=== PATIENT | female | born 1960 | race Caucasian/White ===

== ENCOUNTER 2019-05-30 22:23 | Inpatient (IN) | payer OTHER ==
[~2019-05-30] VITALS: Ht 157.5 cm; Wt 62.1 kg
[~2019-05-30 22:23] MED LIST: B Complex #11 EACH; BUPR150ER PO; CHOL10002; GABA300; HAIR, SKIN & N1 EAC1; MONT10T; OMEPRAZOLE MAGN20 MG PO; SERT50; TRAM50; TURMERIC500 M2; ZYRTEC10 M1 PO
[2019-05-30 22:44] LABS: PCO2 Arterial 47.3 mmHg (35-45); pH Blood Arterial 7.36 (7.35-7.45)
[2019-05-30 22:47] LABS: BASOPHILS ABSOLUTE AUTO 0.03 K/mm3 (0.00-0.23); BASOPHILS PERCENT AUTO 1 % (0-2); EOSINOPHILS PERCENT AUTO 0 % (0-6); Hematocrit 36.2 % (33.0-51.0); Hemoglobin 12.1 g/dL (11.5-16.0); IMMATURE GRAN ABSOLUTE AUTO 0.01 K/mm3 (0.00-0.10); IMMATURE GRAN PERCENT AUTO 0 % (0-1); LYMPHOCYTES ABSOLUTE AUTO 3.28 K/mm3 (0.84-5.20); LYMPHOCYTES PERCENT AUTO 55 % (21-46); MONOCYTES PERCENT AUTO 8 % (4-13); Mean Corpuscular HGB Conc 33.4 g/dL (31.5-36.5); Mean Corpuscular Volume 90 fL (80-100); Mean Platelet Volume 8.6 fL (9.1-12.4); NEUTROPHILS ABSOLUTE AUTO 2.14 K/mm3 (1.96-9.15); NEUTROPHILS PERCENT AUTO 36 % (41-73); Platelet Count 260 K/mm3 (150-400); RDW Coefficient Variation 13.4 % (11.7-14.2); RDW Standard Deviation 44.1 fL (35.1-46.3); Red Blood Cell Count 4.04 M/mm3 (3.80-5.20); White Blood Cell Count 5.96 K/mm3 (4.00-11.30)
[2019-05-30 22:58] LABS: U Amphetamine Screen Not Detected; U Barbituate Screen Not Detected; U Benzodiazapine Screen Not Detected; U Buprenorphine Screen Not Detected; U Cannabinoids Screen Not Detected; U Cocaine Screen Not Detected; U Methadone Screen Not Detected; U Methamphetamine Screen Not Detected; U Opiates Screen DETECTED; U Oxycodone Screen Not Detected; U Phencyclidine Screen Not Detected; U Propoxyphene Screen Not Detected
[2019-05-30 23:06] LABS: Acetaminophen, Random 26.8 ug/mL (10.0-30.0); Alanine Aminotransfer (ALT/SGP 21 U/L (12-78); Albumin, Blood 3.6 g/dL (3.4-5.0); Albumin/Globulin Ratio 1.1 (0.8-1.8); Alk Phos 72 U/L (50-136); Anion Gap 7 mmol/L (6-16); Aspartate Aminotrans (AST/SGOT 20 U/L (12-37); Bilirubin, Total 0.1 mg/dL (0.1-1.0); Blood Urea Nitrogen 14 mg/dL (8-24); Bun/Creatinine Ratio 21.5 (12.0-20.0); CO2, Blood 27 mmol/L (21-32); Calcium, Blood 7.9 mg/dL (8.5-10.1); Chloride, Blood 108 mmol/L (98-108); Creatinine, Blood 0.65 mg/dL (0.40-1.00); Globulin, Blood 3.3 g/dL (2.2-4.0); Glomerular Filtration Rate >60 (60-); Glucose, Blood 86 mg/dL (70-99); Potassium, Blood 3.6 mmol/L (3.5-5.5); Salicylate <1.7 mg/dL (2.8-20.0); Sodium, Blood 142 mmol/L (136-145); Total Protein, Blood 6.9 g/dL (6.4-8.2)
[2019-05-30 23:14] LABS: Ethanol (Alcohol), Blood, Med 312 mg/dL
[2019-05-31 01:22] LABS: Acetaminophen, Random 24.7 ug/mL (10.0-30.0); Alanine Aminotransfer (ALT/SGP 19 U/L (12-78); Albumin, Blood 3.7 g/dL (3.4-5.0); Albumin/Globulin Ratio 1.1 (0.8-1.8); Alk Phos 70 U/L (50-136); Anion Gap 7 mmol/L (6-16); Aspartate Aminotrans (AST/SGOT 20 U/L (12-37); Bilirubin, Total 0.1 mg/dL (0.1-1.0); Blood Urea Nitrogen 14 mg/dL (8-24); Bun/Creatinine Ratio 21.5 (12.0-20.0); CO2, Blood 27 mmol/L (21-32); Calcium, Blood 7.8 mg/dL (8.5-10.1); Chloride, Blood 109 mmol/L (98-108); Creatinine, Blood 0.65 mg/dL (0.40-1.00); Globulin, Blood 3.3 g/dL (2.2-4.0); Glomerular Filtration Rate >60 (60-); Glucose, Blood 96 mg/dL (70-99); Potassium, Blood 3.8 mmol/L (3.5-5.5); Sodium, Blood 143 mmol/L (136-145)
--- NOTE | 2019-05-31 02:15 | NUR ---
PATIENT ARRIVED TO ICU VIA GURNEY FROM ED WITH DX OF OD ON HYDROCODONE, TRAMADOL, AND ZANAFLEX AT APROX 2130. PATIENT TRANSFER TO BED USING SLIDER SHEET AND PLACED ON ICU MONITORS. PATIENT AWAKE AND ANSWERING QUESTIONS APPROPRIATELY. PATIENT TEARFUL AT TIMES WHEN OVERDOSE MENTIONED. PATIENT HAD APROX 400CC YELLOW EMESIS AFTER TRANSFER TO BED. PATIENT VERBALIZED THAT SHE HAS BEEN HAVING NAUSEA AT HOME THE LAST FEW DAYS. PATIENT VERBALIZED UNDERSTANDING REGARDING 2 MD HOLD FOR SI AND NEED FOR CONTINUOUS MONITORING. OXYGEN PLACED AT 2L/NC DUE TO BIOX DOWN TO 88% WHEN PATIENT SLEEPING.
[2019-05-31] MEDS ORDERED: TIZA4 PO (02:48)
[2019-05-31] MEDS ORDERED: Norco 10-325 T1 EACH PO (02:50)
--- NOTE | 2019-05-31 05:02 | NUR ---
[facility] CALLED AND GIVEN INFO. RECOMENDATION FOR 12HR OBSERVATION RISK FOR SEROTONIN SYNDROME FROM TRAMADOL.RISK FOR BRADYCARDIA, HTN, RESP DEPRESSION FROM ZANAFLEX AND NORCO.
--- NOTE | 2019-05-31 06:04 | NUR ---
SUMMARY PATIENT SLEEPING WHEN UNDISTURBED. AWAKENS EASILY TO VERBAL STIMULI. OXYGEN PLACED AT 2L/NC TO KEEP BIOX >90% WHILE SLEEPING. PATIENT HAVING NAUSEA WITH BRIGHT YELLOW EMESIS WHEN GETTING UP. PATIENT UP TO BSC UNABLE TO VOID AT THIS TIME, WILL TRY AGAIN LATER. REMOTE MONITORING CONTINUES DUE TO SI. PATIENT VERBALIZED SHE DID TAKE TO MEDICATIONS TO END HER LIFE, BUT THAT SHE NO LONGER FEELS LIKE HURTING HERSELF.
--- NOTE | 2019-05-31 07:17 | NUR ---
ASSUMED CARE REPORT FROM SAMIR Coffman RN. PATIENT AWAKE. FLAT AFFECT.
--- NOTE | 2019-05-31 08:04 | NUR ---
PATIENT VOMITTED 350 CC BRIGHT GREEN EMESIS. ZOFRAN GIVEN. PO LIQUIDS REMOVED. WILL GIVE ICE CHIPS UNTIL NAUSEA HAS SUBSIDED. UP TO BSC.
--- NOTE | 2019-05-31 12:38 | NUR ---
TONIWA 24. ATIVAN 2 MG IV GIVEN
--- NOTE | 2019-05-31 12:47 | NUR ---
DAUGHTER CALLED TO ADVISE PATIENT IS STILL DRINKING AND THAT PSYCHIATRIST NEEDS TO TALK TO DAUGHTER FOR FURTHER INFORMATION. DAUGHTER IS MAHOGANY, WHO LIVES IN [place], 8 HOURS AWAY [phone]
--- NOTE | 2019-05-31 12:50 | NUR ---
MD VISIT DR. RIDER IN.
--- NOTE | 2019-05-31 18:44 | NUR ---
ICE BAG LEAKED. LINEN CHANGED AFTER ASSISTED TO BSC.
--- NOTE | 2019-05-31 19:11 | NUR ---
ATIVAN 2 MG IV GIVEN FOR CIWA 17. REPORT GIVEN TO SAMIR Coffman RN
--- NOTE | 2019-05-31 20:01 | NUR ---
PATIENT RESTING IN BED C/O NECK PAIN AND ABD CRAMPING AND NAUSEA. PATIENT HAVING TREMORS IN HANDS WHEN REACHING OUT. ATIVAN GIVEN FOR CIWA AND ZOFRAN GIVEN FOR NAUSEA. HEATING PAD PLACED TO UPPER BACK AND NECK AREA. PATIENT REPOSITIONING SELF FOR COMFORT. REMOTE MONITORING CONTINUES, PATIENT DENIES SI AT THIS TIME. PATIENTS CELL PHONE LOCKED IN CUPBOARD WITH HER CLOTHING.
--- NOTE | 2019-05-31 21:00 | NUR ---
UNDERCOVER OPERATOR SHOWING INCREASED PVC'S, NAZANIN KAHN CALLED AND ORDER OBTAINED FOR BMP AND MAG, POISON CONTROL ALSO REQUESTING CHECK OF LIVER FUNCTIONS, LABS ORDERED. RESULTS CALLED TO NAZANIN KAHN, SEE NEW ORDERS.
[2019-05-31 21:15] LABS: Anion Gap 9 mmol/L (6-16); Blood Urea Nitrogen 9 mg/dL (8-24); CO2, Blood 26 mmol/L (21-32); Calcium, Blood 7.7 mg/dL (8.5-10.1); Chloride, Blood 100 mmol/L (98-108); Glomerular Filtration Rate >60 (60-); Glucose, Blood 82 mg/dL (70-99); Magnesium, Blood 1.3 mg/dL (1.6-2.4); Potassium, Blood 3.5 mmol/L (3.5-5.5); Sodium, Blood 135 mmol/L (136-145)
[2019-05-31 21:40] LABS: Alanine Aminotransfer (ALT/SGP 19 U/L (12-78); Albumin, Blood 3.9 g/dL (3.4-5.0); Albumin/Globulin Ratio 1.1 (0.8-1.8); Alk Phos 60 U/L (50-136); Aspartate Aminotrans (AST/SGOT 25 U/L (12-37); Bilirubin, Total 0.5 mg/dL (0.1-1.0); Globulin, Blood 3.5 g/dL (2.2-4.0); Total Protein, Blood 7.4 g/dL (6.4-8.2)
[2019-06-01 05:18] LABS: Anion Gap 8 mmol/L (6-16); Blood Urea Nitrogen 8 mg/dL (8-24); Bun/Creatinine Ratio 15.9 (12.0-20.0); CO2, Blood 27 mmol/L (21-32); Calcium, Blood 7.9 mg/dL (8.5-10.1); Chloride, Blood 100 mmol/L (98-108); Glomerular Filtration Rate >60 (60-); Glucose, Blood 84 mg/dL (70-99); Magnesium, Blood 1.8 mg/dL (1.6-2.4); Potassium, Blood 3.7 mmol/L (3.5-5.5); Sodium, Blood 135 mmol/L (136-145)
--- NOTE | 2019-06-01 06:07 | NUR ---
SUMMARY PATIENT SLEEPING OFF AND ON T/O NIGHT. UP WITH MIN ASSIST. MEDICATED WITH ATIVAN AND LIBRIUM NEEDED DUE TO TREMORS AND IRRITATION, SEE CIWA. PATIENT CONTINUES TO BE ON REMOTE MONITOR.
--- NOTE | 2019-06-01 07:30 | NUR ---
ASSUMED CARE REPORT FROM SAMIR Coffman RN. PATIENT SLEEPING.
--- NOTE | 2019-06-01 08:29 | NUR ---
MD VISIT DR. GILL IN. [facility] CANCELLED.
--- NOTE | 2019-06-01 11:32 | NUR ---
MD VISIT DR. RIDER IN
--- NOTE | 2019-06-01 16:38 | NUR ---
REPORT GIVEN TO ISAEL PIERCE. PATIENT WILL MOVE TO ROOM 347 WHEN IT'S CLEAN AND SAFE
--- NOTE | 2019-06-01 18:14 | NUR ---
PT TRANSFERED. PT TRANSFERED TO 347. ACREAGE REPORTERQUINTON CROOK CONFIRMED PT IS VISABLE IN ROOM. SAFETY CHECKLIST COMPLETE. WILL CONTINUE TO MONITOR.
--- NOTE | 2019-06-01 18:22 | NUR ---
PATIENT TX'D BY W/C TO 3RD FLOOR BY FRANCHESKA. ALL BELONGINGS TX'D WITH HER AND GIVEN TO RN (INCLUDING CELL PHONE).
--- NOTE | 2019-06-01 20:08 | NUR ---
suicide precautions on alert Female who took overdose of medication following relapse of ETOH. Attends outpt Treatment of ETOH and depression at [facility]. Has Spouse and cooperative. Has order for kpad PT requested and provided as well as ice to neck for chronic pain. Direct camera monitering verified with Dax perry tech.Denies current plan for self harm.
--- NOTE | 2019-06-02 03:42 | NUR ---
PT CONTINUES COOPERATIVE ON SI PRECAUTIONS AFTER OD. AT BEGINNING OF SHIFT PT CO BACK AND NECK PAIN RELEIVED BY ICE OR HEAT. KPAD IN USE TO LOW BACK. CIWA 4 OR BELOW, DENIES NEED FOR ANTIANXIETY RX. PT VSS ROOM AIR, CALLS APPROPRIATLY FOR BATHROOM USE. 1 TO 1 OBSERVATION WITH REMOTE CAMERA MONITOR CONTINUES. SEVERAL CALLS WHEN PT GETS UP. AGREES TO NO SELF HARM. [email or web address]. RELAPSE ON TREATMENT PROGRAM. , ADULT CHILDREN.
[2019-06-02 05:36] LABS: Anion Gap 9 mmol/L (6-16); Blood Urea Nitrogen 11 mg/dL (8-24); CO2, Blood 28 mmol/L (21-32); Calcium, Blood 9.1 mg/dL (8.5-10.1); Chloride, Blood 100 mmol/L (98-108); Creatinine, Blood 0.55 mg/dL (0.40-1.00); Glomerular Filtration Rate >60 (60-); Glucose, Blood 114 mg/dL (70-99); Magnesium, Blood 1.9 mg/dL (1.6-2.4); Potassium, Blood 3.8 mmol/L (3.5-5.5); Sodium, Blood 137 mmol/L (136-145)
[2019-06-02] MEDS ORDERED: TRAZ50 PO (14:53)
[2019-06-02] MEDS ORDERED: TUMS500 MG PO (14:54)
--- NOTE | 2019-06-02 15:29 | NUR ---
DISCHARGE INSTRUCTIONS REVIEWED WITH PT AND SPOUSE. IV DC'D INTACT. RX FAXED [facility]. F/U APPT MADE WITH EPHRAIM RIDER. PT TO GO DIRECTLY TO [facility] AND HAS F/U PLANS WITH JASON RYAN. PT DC'D HOME WITH SPOUSE AT 1525.
== END 2019-06-02 15:26 | disposition home or self-care (01) | DRG 917 ==
LOC: ER 22:23 → ICUW 05-31 01:38 → MEDS 06-01 18:05
PROVIDERS: Emergency Medicine; Internal Medicine; Nurse Practitioner Acute Care; ADMIT Hospitalist
DX: T40.4X2A Poisoning by other synthetic narcotics, intentional self-harm, initial encounter (principal); G92 Toxic encephalopathy; F33.9 Major depressive disorder, recurrent, unspecified; T40.2X2A Poisoning by other opioids, intentional self-harm, initial encounter; E83.51 Hypocalcemia; E83.42 Hypomagnesemia; R09.02 Hypoxemia; F10.129 Alcohol abuse with intoxication, unspecified; Z88.5 Allergy status to narcotic agent; Z91.018 Allergy to other foods; Z79.899 Other long term (current) drug therapy
CPT/HCPCS: 36415; 36600; 71045; 80048; 80053; 82803; 83605; 83735; 85025; 93005; 93010; 96374; 96375; 96376; 97116; 97161; 99285-25; G0480; J0610; J2060; J2310; J2405; J3475; J3480; J7030; J7040; P9612

== ENCOUNTER 2020-11-20 21:53 | Emergency (ER) | payer OTHER ==
[~2020-11-20] VITALS: Ht 157.5 cm; Wt 61.2 kg
[~2020-11-20 21:53] MED LIST changes: +Norco 10-325 T1 EACH PO; +TIZA4 PO; +TRAZ50 PO; +TUMS500 MG PO
[2020-11-20 22:30] LABS: BASOPHILS ABSOLUTE AUTO 0.04 K/mm3 (0.00-0.23); BASOPHILS PERCENT AUTO 1 % (0-2); EOSINOPHILS ABSOLUTE AUTO 0.01 K/mm3 (0.00-0.68); EOSINOPHILS PERCENT AUTO 0 % (0-6); Hematocrit 40.9 % (33.0-51.0); Hemoglobin 13.4 g/dL (11.5-16.0); IMMATURE GRAN ABSOLUTE AUTO 0.01 K/mm3 (0.00-0.10); IMMATURE GRAN PERCENT AUTO 0 % (0-1); LYMPHOCYTES PERCENT AUTO 49 % (21-46); MONOCYTES ABSOLUTE AUTO 0.47 K/mm3 (0.16-1.47); MONOCYTES PERCENT AUTO 8 % (4-13); Mean Corpuscular HGB 29.8 pg (26.0-34.0); Mean Corpuscular HGB Conc 32.8 g/dL (31.5-36.5); Mean Corpuscular Volume 91 fL (80-100); Mean Platelet Volume 8.7 fL (9.1-12.4); NEUTROPHILS ABSOLUTE AUTO 2.39 K/mm3 (1.96-9.15); NEUTROPHILS PERCENT AUTO 42 % (41-73); Platelet Count 222 K/mm3 (150-400); RDW Coefficient Variation 13.9 % (11.7-14.2); RDW Standard Deviation 47.2 fL (35.1-46.3); White Blood Cell Count 5.72 K/mm3 (4.00-11.30)
[2020-11-20 22:49] LABS: Alanine Aminotransfer (ALT/SGP 28 U/L (12-78); Albumin, Blood 3.9 g/dL (3.4-5.0); Alk Phos 66 U/L (50-136); Anion Gap 9 mmol/L (6-16); Aspartate Aminotrans (AST/SGOT 27 U/L (12-37); Bilirubin, Total 0.2 mg/dL (0.1-1.0); Blood Urea Nitrogen 11 mg/dL (8-24); Bun/Creatinine Ratio 16.6 (12.0-20.0); CO2, Blood 25 mmol/L (21-32); Calcium, Blood 8.6 mg/dL (8.5-10.1); Chloride, Blood 106 mmol/L (98-108); Creatinine, Blood 0.66 mg/dL (0.40-1.00); Globulin, Blood 3.8 g/dL (2.2-4.0); Glomerular Filtration Rate >60 (60-); Glucose, Blood 90 mg/dL (70-99); Magnesium, Blood 1.8 mg/dL (1.6-2.4); Potassium, Blood 4.1 mmol/L (3.5-5.5); Sodium, Blood 140 mmol/L (136-145); Total Protein, Blood 7.7 g/dL (6.4-8.2); Troponin I <0.015 ng/mL (0.000-0.040)
[2021-03-30] MEDS ORDERED: SERT50 PO (11:06)
[2021-03-30] MEDS ORDERED: MONT10T PO (11:06)
[2021-03-30] MEDS ORDERED: ZYRTEC10 M2 PO (11:06)
[2021-03-30] MEDS ORDERED: OMEP20ER PO (11:06)
[2021-03-30] MEDS ORDERED: BUPR150ER PO (11:06)
[2021-03-30] MEDS ORDERED: TRAM50 PO (11:07)
[2021-03-30] MEDS ORDERED: TURMERIC500 M2 PO (11:07)
[2021-03-30] MEDS ORDERED: HAIR, SKIN AND1 EAC3 PO (11:07)
[2021-03-30] MEDS ORDERED: GABA300 PO (11:07)
[2021-03-30] MEDS ORDERED: VITAMIN D325 MC3 PO (11:08)
[2021-03-30] MEDS ORDERED: B-COMPLEX WITH1 EAC2 PO (11:08)
== END 2020-11-21 00:10 | disposition home or self-care (01) ==
LOC: ER 21:53
PROVIDERS: Emergency Medicine
DX: R10.13 Epigastric pain (principal); R07.89 Other chest pain; K21.9 Gastro-esophageal reflux disease without esophagitis; Z87.891 Personal history of nicotine dependence; Z79.899 Other long term (current) drug therapy; Z88.5 Allergy status to narcotic agent; Z91.018 Allergy to other foods
CPT/HCPCS: 36415; 71045; 80053; 83690; 83735; 84484; 85025; 85379; 93005; 93010; 99285-25; A9270

== ENCOUNTER 2021-04-06 07:17 | Day surgery (SDC) | payer OTHER ==
[~2021-04-06] VITALS: Ht 157.5 cm; Wt 62.5 kg
[~2021-04-06 07:17] MED LIST changes: +B-COMPLEX WITH1 EAC2 PO; +GABA300 PO; +HAIR, SKIN AND1 EAC3 PO; +MONT10T PO; +OMEP20ER PO; +SERT50 PO; +TRAM50 PO; +TURMERIC500 M2 PO; +VITAMIN D325 MC3 PO; +ZYRTEC10 M2 PO
== END 2021-04-06 09:36 | disposition home or self-care (01) ==
LOC: ORSCSDS 07:17
PROVIDERS: Internal Medicine Gastroenterology
PROC: 0DB78ZX Excision of Stomach, Pylorus, Via Natural or Artificial Opening Endoscopic, Diagnostic (ICD-10-PCS; principal; 2021-04-06 08:30)
PROC: 0DBK8ZX Excision of Ascending Colon, Via Natural or Artificial Opening Endoscopic, Diagnostic (ICD-10-PCS; principal; 2021-04-06 08:30)
PROC: 0DBN8ZX Excision of Sigmoid Colon, Via Natural or Artificial Opening Endoscopic, Diagnostic (ICD-10-PCS; principal; 2021-04-06 08:30)
PROC: 0DB58ZX Excision of Esophagus, Via Natural or Artificial Opening Endoscopic, Diagnostic (ICD-10-PCS; principal; 2021-04-06 08:30)
DX: Z12.11 Encounter for screening for malignant neoplasm of colon (principal); Z86.010 Personal history of colon polyps; K21.00 Gastro-esophageal reflux disease with esophagitis, without bleeding; D12.2 Benign neoplasm of ascending colon; D12.5 Benign neoplasm of sigmoid colon; R11.2 Nausea with vomiting, unspecified; K31.7 Polyp of stomach and duodenum; K64.1 Second degree hemorrhoids; J45.909 Unspecified asthma, uncomplicated
CPT/HCPCS: 88305; 88342; J2405; J2704; J7120

== ENCOUNTER 2023-07-01 12:44 | Emergency (ER) | payer OTHER ==
[~2023-07-01] VITALS: Ht 157.5 cm; Wt 63.5 kg
[~2023-07-01 12:44] MED LIST changes: -NALTREX4.5 MG; -ONDA4ODT
[2023-07-01 13:42] LABS: Source, Urine Voided
[2023-07-01 13:49] LABS: Appearance, Urine Clear (Clear); Bilirubin, Urine Neg (Neg); Blood, Urine 3+ (Neg); Color, Urine Yellow (P-Yellow); Glucose Qualitative, Urine Neg (Neg); Ketones, Urine Neg (Neg); Leukocyte Esterase, Urine Neg (Neg); Nitrite, Urine Neg (Neg); Protein, Urine 1+ (Neg); Urobilinogen, Urine NORM (Normal)
[2023-07-01 13:59] LABS: White Blood Cells, Urine 0-2 /hpf (0-5)
[2023-07-01 14:00] LABS: Bacteria Few /hpf; Squamous Epithelial Cells Rare /hpf (Few)
[2023-07-01 14:07] LABS: Albumin, Blood 3.7 g/dL (3.4-5.0); Albumin/Globulin Ratio 1.1 (0.8-1.8); Bilirubin, Total 0.8 mg/dL (0.1-1.0); Bun/Creatinine Ratio 26.6 (12.0-20.0); Calcium, Blood 9.2 mg/dL (8.5-10.1); Creatinine, Blood 0.75 mg/dL (0.40-1.00); Globulin, Blood 3.3 g/dL (2.2-4.0); Potassium, Blood 3.1 mmol/L (3.5-5.5)
[2023-07-01] MEDS ORDERED: NALTREX4.5 MG (15:30)
[2023-07-01] MEDS ORDERED: ONDA4ODT (15:30)
[2023-07-01 16:46] VITALS: BP 141/90
== END 2023-07-01 17:48 | disposition home or self-care (01) ==
LOC: ER 12:44
PROVIDERS: Student in an Organized Health Care Education/Training Program
DX: R11.2 Nausea with vomiting, unspecified (principal); K76.0 Fatty (change of) liver, not elsewhere classified; K21.9 Gastro-esophageal reflux disease without esophagitis; F32.A Depression, unspecified; F41.9 Anxiety disorder, unspecified; Z88.5 Allergy status to narcotic agent; Z91.018 Allergy to other foods; Z79.899 Other long term (current) drug therapy; Z87.891 Personal history of nicotine dependence
CPT/HCPCS: 74176; 80053; 81001; 83690; 93005; 93010; 96374; 96375; 99284-25; A9270; C9113; J1885; J2405; J7030

== ENCOUNTER → 2023-07-01 | Outpatient (CLI) | payer OTHER ==
[~2023-07-01] MED LIST changes: +ALBU90OI INH; +METPRE4DP PO; +NALTREX4.5 MG; +ONDA4ODT
[2023-07-01 12:52] LABS: BASOPHILS ABSOLUTE AUTO 0.02 K/mm3 (0.00-0.23); BASOPHILS PERCENT AUTO 0 % (0-2); EOSINOPHILS PERCENT AUTO 0 % (0-6); Hematocrit 43.6 % (33.0-51.0); Hemoglobin 15.2 g/dL (11.5-16.0); IMMATURE GRAN ABSOLUTE AUTO 0.02 K/mm3 (0.00-0.10); IMMATURE GRAN PERCENT AUTO 0 % (0-1); LYMPHOCYTES ABSOLUTE AUTO 1.66 K/mm3 (0.84-5.20); LYMPHOCYTES PERCENT AUTO 24 % (21-46); MONOCYTES ABSOLUTE AUTO 0.74 K/mm3 (0.16-1.47); MONOCYTES PERCENT AUTO 11 % (4-13); Mean Corpuscular HGB 30.9 pg (26.0-34.0); Mean Corpuscular HGB Conc 34.9 g/dL (31.5-36.5); Mean Corpuscular Volume 89 fL (80-100); Mean Platelet Volume 10.1 fL (9.1-12.4); NEUTROPHILS ABSOLUTE AUTO 4.37 K/mm3 (1.96-9.15); NEUTROPHILS PERCENT AUTO 64 % (41-73); Platelet Count 142 K/mm3 (150-400); RDW Coefficient Variation 12.7 % (11.7-14.2); RDW Standard Deviation 41.5 fL (35.1-46.3); Red Blood Cell Count 4.92 M/mm3 (3.80-5.20); White Blood Cell Count 6.81 K/mm3 (4.00-11.30)
[2023-07-01 13:19] LABS: Albumin, Blood 4.1 g/dL (3.4-5.0); Albumin/Globulin Ratio 1.1 (0.8-1.8); Bun/Creatinine Ratio 27.9 (12.0-20.0); Calcium, Blood 10.3 mg/dL (8.5-10.1); Creatinine, Blood 0.79 mg/dL (0.40-1.00); Globulin, Blood 3.8 g/dL (2.2-4.0); Total Protein, Blood 7.9 g/dL (6.4-8.2)
== END | disposition home or self-care (01) ==
LOC: LAB SHORT 11:45 → LAB 11:45
PROVIDERS: Family Medicine
DX: R11.2 Nausea with vomiting, unspecified (principal)
CPT/HCPCS: 80053; 83690; 84145; 85025

== ENCOUNTER 2024-06-01 09:50 | Day surgery (SDC) | payer OTHER ==
[~2024-06-01] VITALS: Ht 157.5 cm; Wt 63.2 kg
[~2024-06-01 09:50] MED LIST changes: +Lactated Ringer's 1,000 ML IV ONE; +NALTREX4.5 MG; +ONDA4ODT; +propofoL 50 ML IV ONE
[2024-06-01] MEDS ORDERED: Budeprion Xl300 MG (10:47)
[2024-06-01] MEDS ORDERED: SERT100 (10:48)
[2024-06-01] MEDS ORDERED: Lactated Ringer's 1,000 ML IV ONE (11:23)
[2024-06-01 12:42] VITALS: BP 107/83
== END 2024-06-01 12:38 | disposition home or self-care (01) ==
LOC: ORSCSDS 09:50
PROVIDERS: Internal Medicine Gastroenterology
PROC: 0DBK8ZX Excision of Ascending Colon, Via Natural or Artificial Opening Endoscopic, Diagnostic (ICD-10-PCS; principal; 2024-06-01 11:00)
PROC: 0DBM8ZX Excision of Descending Colon, Via Natural or Artificial Opening Endoscopic, Diagnostic (ICD-10-PCS; principal; 2024-06-01 11:00)
PROC: 0DBP8ZX Excision of Rectum, Via Natural or Artificial Opening Endoscopic, Diagnostic (ICD-10-PCS; principal; 2024-06-01 11:00)
DX: Z12.11 Encounter for screening for malignant neoplasm of colon (principal); Z86.010 Personal history of colon polyps; D12.2 Benign neoplasm of ascending colon; K63.5 Polyp of colon; D12.8 Benign neoplasm of rectum; Z86.19 Personal history of other infectious and parasitic diseases; Z79.899 Other long term (current) drug therapy
CPT/HCPCS: 88305; J2704; J7120

== ENCOUNTER 2024-09-24 14:19 | Emergency (ER) | payer OTHER ==
[~2024-09-24] VITALS: Ht 157.5 cm; Wt 63.5 kg
[~2024-09-24 14:19] MED LIST changes: +Budeprion Xl300 MG; -Lactated Ringer's 1,000 ML IV ONE; +SERT100; -propofoL 50 ML IV ONE
[2024-09-24] MEDS ORDERED: Albuterol 2.5 MG/3 ML VIAL INH SCH (14:25)
[2024-09-24] MEDS ORDERED: Magnesium Sulf 2 GM/Water 50ML 50 ML IV ONE (14:25)
[2024-09-24 14:36] LABS: BASOPHILS ABSOLUTE AUTO 0.04 K/mm3 (0.00-0.23); BASOPHILS PERCENT AUTO 0 % (0-2); EOSINOPHILS ABSOLUTE AUTO 0.16 K/mm3 (0.00-0.68); EOSINOPHILS PERCENT AUTO 2 % (0-6); Hematocrit 41.9 % (33.0-51.0); Hemoglobin 14.6 g/dL (11.5-16.0); IMMATURE GRAN ABSOLUTE AUTO 0.02 K/mm3 (0.00-0.10); IMMATURE GRAN PERCENT AUTO 0 % (0-1); LYMPHOCYTES ABSOLUTE AUTO 4.75 K/mm3 (0.84-5.20); LYMPHOCYTES PERCENT AUTO 47 % (21-46); MONOCYTES ABSOLUTE AUTO 0.85 K/mm3 (0.16-1.47); MONOCYTES PERCENT AUTO 8 % (4-13); Mean Corpuscular HGB Conc 34.8 g/dL (31.5-36.5); Mean Corpuscular Volume 89 fL (80-100); NEUTROPHILS ABSOLUTE AUTO 4.35 K/mm3 (1.96-9.15); NEUTROPHILS PERCENT AUTO 43 % (41-73); Platelet Count 244 K/mm3 (150-400); RDW Standard Deviation 49.8 fL (35.1-46.3); Red Blood Cell Count 4.71 M/mm3 (3.80-5.20); White Blood Cell Count 10.17 K/mm3 (4.00-11.30)
[2024-09-24 14:38] LABS: Bicarbonate Venous 23.6 mmol/L (24.0-30.0); PCO2 Venous 23.8 mmHg (38-42); PO2 Venous 156 mmHg (38-42)
[2024-09-24 14:39] LABS: pH Blood Venous 7.53 (7.34-7.37)
[2024-09-24 15:05] LABS: Albumin, Blood 4.1 g/dL (3.4-5.0); Albumin/Globulin Ratio 1.1 (0.8-1.8); Bilirubin, Total 0.4 mg/dL (0.1-1.0); Bun/Creatinine Ratio 16.4 (12.0-20.0); Calcium, Blood 8.9 mg/dL (8.5-10.1); Creatinine, Blood 0.79 mg/dL (0.40-1.00); Globulin, Blood 3.8 g/dL (2.2-4.0); Magnesium, Blood 1.7 mg/dL (1.6-2.4); Potassium, Blood 3.5 mmol/L (3.5-5.5); Total Protein, Blood 7.9 g/dL (6.4-8.2)
[2024-09-24 15:15] LABS: Influenza A, PCR NEGATIVE (NEGATIVE); Influenza B, PCR NEGATIVE (NEGATIVE); Resp Syncytial Virus, PCR NEGATIVE (NEGATIVE); SARS-Cov-2 (COVID-19) PCR, MMC NEGATIVE (NEGATIVE)
[2024-09-24] MEDS ORDERED: Ondansetron HCl 2 MG / ML 2ML Vial IV ONE (15:30)
[2024-09-24] MEDS ORDERED: LORazepam 2 MG/ML 1ML Injection IV ONE (15:55)
[2024-09-24] MEDS ORDERED: Benzonatate 100 MG Cap PO ONE (16:20)
[2024-09-24 16:34] VITALS: BP 121/94
[2024-09-24] MEDS ORDERED: PRED20 PO ×2 (17:09→17:12)
[2024-09-24] MEDS ORDERED: Tessalon200 MG PO ×2 (17:09→17:12)
[2024-09-24] MEDS ORDERED: HYDHCL25 PO ×2 (17:09→17:13)
[2024-09-24] MEDS ORDERED: ALBU90OI INH ×2 (17:09→17:11)
== END 2024-09-24 17:26 | disposition home or self-care (01) ==
LOC: ER 14:19
PROVIDERS: Emergency Medicine
DX: J45.901 Unspecified asthma with (acute) exacerbation (principal); K21.9 Gastro-esophageal reflux disease without esophagitis; Z79.899 Other long term (current) drug therapy; Z88.5 Allergy status to narcotic agent; Z91.018 Allergy to other foods
CPT/HCPCS: 0241U; 71045; 80053; 82803; 83735; 83880; 84484; 85025; 93005; 93010; 94644; 94660; 94664; 96365; 96375; 99285-25; A9270; J2060; J2405; J3475